=== PATIENT | female | born 1940 | race Caucasian/White ===

== ENCOUNTER → 2023-09-13 09:41 | Outpatient (REF) | payer OTHER, SELFPAY | LOC: RAD 09:41 | PROVIDERS: ATTENDING PHYSICIAN Physical Medicine & Rehabilitation; FAMILY PHYSICIAN Family Medicine | DX: R25.2 Cramp and spasm (principal) | CPT/HCPCS: 93971 ==

== ENCOUNTER → 2024-01-15 09:30 | Outpatient (REF) | payer OTHER, SELFPAY | LOC: RAD 09:30 | PROVIDERS: ATTENDING PHYSICIAN Nurse Practitioner Family | DX: M81.0 Age-related osteoporosis without current pathological fracture (principal); M85.80 Other specified disorders of bone density and structure, unspecified site | CPT/HCPCS: 77080 ==

== ENCOUNTER 2024-03-30 09:36 | Inpatient (IN) | payer OTHER, SELFPAY ==
[2024-03-06 12:46] VITALS: BMI 24.7
[2024-03-06 13:56] LABS: Hematocrit 43.6 % (37.0-47.0); Hemoglobin 14.7 g/dL (12.0-16.0); Mean Corp Hgb Conc. 33.7 g/dL (33.0-37.0); Mean Corpuscular Hgb 30.8 pg (27.0-31.0); Mean Corpuscular Volume 91.4 fL (81.0-99.0); Mean Platelet Volume 9.6 fL (7.4-10.4); Platelet Count 252 10^3/uL (130-400); Red Blood Cell Count 4.77 10^6/uL (4.20-5.40); Red Cell Dist. Width 12.6 % (11.5-14.5); White Blood Cell Count 7.7 10^3/uL (4.8-10.8)
[2024-03-06 14:04] LABS: ALT (SGPT) 25 U/L (0-35); AST (SGOT) 28 U/L (14-36); Albumin 4.5 g/dl (3.5-5.0); Alkaline Phosphatase 86 U/L (38-126); Blood Urea Nitrogen 21 mg/dl (7-17); Calcium 9.7 mg/dl (8.4-10.2); Carbon Dioxide 30 mmol/L (22-30); Chloride 97 mmol/L (98-107); Estimated Creatinine Clearance 51 ml/min; Glucose 136 mg/dl (70-99); Potassium 4.5 mmol/L (3.5-5.1); Sodium 137 mmol/L (135-145); Total Bilirubin 0.5 mg/dl (0.2-1.3); eGFR > 60.00
[2024-03-06 14:21] LABS: Glycohemoglobin (HgbA1c) 5.7 % (4.0-5.6)
[2024-03-30] VITALS (9 sets, daily range): BP systolic 114–168; BP diastolic 76–92; PULSE 84; O2SAT 95; BMI 24.7
[2024-03-30] MEDS: NORMOSOL-R/PLASMALYTE-A 1000 IV ×2 (09:50→17:11)
[2024-03-30] MEDS: TYLENOL 650 MG PO ×2 (10:20→17:06)
[2024-03-30] MEDS: CELEBREX 200 MG PO (10:20)
--- NOTE | 2024-03-30 15:02 | W.PN.ORTHO ---
Today's Communication / Plan
-
Will consult case management as pt has concerns re: d/c planning.
D/c when clinically stable.
Assessment
.
Distal Motor Intact: Yes
Dressing:
Clean, dry and intact.
Assessment:
R knee OA s/p R TKA w/ Dr Richard 03/30/24
DVT prophylaxis - ASA, b/l venous foot pumps
HTN - + parameters - monitor BP
GERD - continue PPI HS
Ambulatory dysfunction - on fall precautions
Hypercholesterolemia
Atherosclerosis of aorta
Mild-mod valvular disease
Multilevel DDD
OAB w/ urge incontinence
Macular degeneration
Osteoporosis
Prediabetes, A1c 5.7
Plan
.
Surgery / Date: R TKA w/ Dr Richard 03/30/24
DVT Prophylaxis: Aspirin
Activity:
Out of bed.
PT/OT
Subjective
.
.:
Patient resting comfortably in PACU.
R knee pain minimal and well tolerated.
Denies any new significant complaints.
Vital Signs and Labs
.
Vital Signs and Labs:
Lab Results
03/06/24 12:56
03/06/24 12:56
Physical Exam
-
HEENT: No pallor, cyanosis, or jaundice. Throat clear.
NECK: Supple. No JVD.
RESPIRATORY: Lungs clear to auscultation.
CVS: S1, S2 normal. RRR.�
ABDOMEN: Soft, non-tender. No distension.
EXTREMITIES: Strength equal, no calf pain with palpation/dorsiflexion. Calves soft.
WEB MARKETING ASSISTANT: AOx3. No focal deficits. bone char puller grossly intact
--- NOTE | 2024-03-30 15:21 | PTCARENOTE ---
Pt arrived to 2S in bed. Full assessment completed. R knee with trace edema. Decreased movement and sensation to B/L LEs, neurovascular assessment otherwise WDL. R knee DSG with scant pinpoint drainage noted. Bed locked and in the lowest position
safety maintained. Oriented to room and call sullivan.
[2024-03-30] MEDS: ASPIRIN 325 MG PO (17:06)
[2024-03-30] MEDS: ROXICODONE 5 MG PO (21:40)
[2024-03-30] MEDS: DETROL LA 2 MG PO (21:41)
[2024-03-30] MEDS: ANCEF 5 IV (21:42)
[2024-03-30] MEDS: BACTROBAN 2% OINTMENT 1 APPLIC NASAL (21:42)
[2024-03-30] MEDS: SENOKOT 17.2 MG PO (21:42)
[2024-03-30] MEDS: CRESTOR 10 MG PO (21:42)
[2024-03-30] MEDS: PROTONIX 40 MG PO (21:42)
[2024-03-30] MEDS: COLACE 100 MG PO (21:42)
[2024-03-30] MEDS: DECADRON 4 MG PO (21:43)
[2024-03-30] MEDS: TYLENOL PO (21:55)
[2024-03-31] MEDS: TYLENOL 650 MG PO ×5 (00:21→15:08)
[2024-03-31] MEDS: ANCEF 5 IV (03:08)
[2024-03-31 03:53] VITALS: BP 134/78
[2024-03-31 07:00] VITALS: BP 110/72
[2024-03-31] MEDS: CELEBREX 200 MG PO (08:13)
[2024-03-31] MEDS: DECADRON 4 MG PO (08:13)
[2024-03-31] MEDS: COLACE 100 MG PO (08:13)
[2024-03-31] MEDS: ASPIRIN 325 MG PO (08:14)
[2024-03-31] MEDS: BACTROBAN 2% OINTMENT 1 APPLIC NASAL (08:14)
[2024-03-31] MEDS: SENOKOT 17.2 MG PO (08:14)
[2024-03-31] MEDS: ZOFRAN 4 MG IV (09:16)
[2024-03-31 10:45] VITALS: BP 118/66; BP 135/73; PULSE 58; PULSE 69; O2SAT 95
--- NOTE | 2024-03-31 10:52 | W.PN.ORTHO ---
Today's Communication / Plan
-
D/c today if remaining clinically stable.
Assessment
.
Distal Motor Intact: Yes
Dressing:
Scant areas of old incisional bleeding.
Assessment:
R knee OA s/p R TKA w/ Dr Richard 03/30/24
DVT prophylaxis - ASA, b/l venous foot pumps
Mild nausea - medicated w/ IV Zofran - encouraged pain meds w/ food, PO Zofran prn upon d/c
HTN - + parameters - BPs overall stable
GERD - continue PPI HS
Ambulatory dysfunction - on fall precautions
Hypercholesterolemia
Atherosclerosis of aorta
Mild-mod valvular disease
Multilevel DDD
OAB w/ urge incontinence
Macular degeneration
Osteoporosis
Prediabetes, A1c 5.7
Plan
.
Surgery / Date: R TKA w/ Dr Richard 03/30/24
DVT Prophylaxis: Aspirin
Activity:
Out of bed.
PT/OT
Discharge Plan: Home w/ VN
Subjective
.
.:
Patient resting comfortably in bed this AM.
Mild nausea reported - medicated w/ IV Zofran recently.
Denies any new significant complaints.
Eager for potential d/c today.
Vital Signs and Labs
.
Vital Signs and Labs:
Lab Results
03/06/24 12:56
03/06/24 12:56
Temp Pulse Resp BP Pulse Ox
99.8 F 84 18 110/72 96
03/31/24 07:00 03/31/24 07:00 03/31/24 07:00 03/31/24 07:00 03/31/24 07:00
Physical Exam
-
HEENT: No pallor, cyanosis, or jaundice. Throat clear.
NECK: Supple. No JVD.
RESPIRATORY: Lungs clear to auscultation.
CVS: S1, S2 normal. RRR.
ABDOMEN: Soft, non-tender. No distension.
EXTREMITIES: Mild R knee post-surgical edema. Strength equal, no calf pain with palpation/dorsiflexion. Calves soft.
CHILD PSYCHOMETRIST: AOx3. No focal deficits. laborer sawmill grossly intact
[2024-03-31 11:00] VITALS: BP 140/80
--- NOTE | 2024-03-31 11:10 | CM ---
Addendum entered by Allyn George 03/31/24 11:34:
List of outpatient rehabs given to the patient.
Original Note:
Patient seen at bedside. Called and left message with her daughter Maru [phone]
IA completed
PT recommend home health.
Outpatient was not set up (per Ivonne OLIVARES prior note stated script was given) - patient states assumed SNF post-surgery.
Options given [facility] - liaison notified.
Referral in [facility].
IMM explained & signed.
PLAN: Discharge to home with VN
patient states daughter will transport her after work
--- NOTE | 2024-03-31 11:42 | VNURNOTE ---
Home Health Liaison met with patient at bedside to discuss [facility] nurse/therapy, visits, schedule and homebound status. Patient is agreeable and understands that visits at home will be 2-3 x per week to assess and teach medical management.
[facility] brochure provided with contact information. Patient is aware that [facility] will contact them for start of care in 1-2 days after discharge from .
[facility] referral completed in [facility].
[2024-03-31 12:33] VITALS: BP 132/74; BP 135/74; PULSE 66
[2024-03-31 15:00] VITALS: BP 142/80
--- NOTE | 2024-03-31 15:01 | W.DS.TRANS ---
DC Summary - Hand Assembler
-
Discharge Instructions:
Sleep Apnea Risk Low
Discharge Diagnosis/Procedures R knee OA s/p R TKA w/ Dr Richard 03/30/24
Diet Regular
Activity As tolerated,With Walker
Driving Restrictions Not until seen by your Dr
Bathing Restrictions OK to Shower
Other Services PT,VN
Wound Care Dressing to be removed 1 week post-surgery.
Instructions:
Stand-Alone Forms: Total Hip/Knee Replacement D/C
Changes to Home Medications: Yes
Discharge Medications:
DC Medications w/original date entered in swabr
Garden Veges 1 dose PO DAILY 03/24/24
Total [place] 1 dose PO DAILY 03/24/24
Womens Complete 1 dose PO DAILY 03/24/24
levocetirizine 2.5 mg/5 mL oral solution (Xyzal) 2.5 mg PO QPM Allergies 03/24/24
lutein 40 mg-zeaxanthin 1,600 mcg capsule 1 cap PO BID 03/24/24
mupirocin 2 % ointment topical kit 1 applic topical BID 03/24/24
omeprazole 20 mg tablet,delayed release 20 mg PO HS Gastrointestinal Issue 03/24/24
rosuvastatin 10 mg tablet 10 mg PO HS High Cholesterol 03/24/24
trospium 60 mg capsule,extended release 24 hr 60 mg PO HS Lung/Breathing Issues 03/24/24
vitamin B12 500 mcg-folic acid 400 mcg tablet 1 tab PO DAILY Supplement 03/24/24
acetaminophen 500 mg tablet (Tylenol Extra Strength) 1,000 mg (2 x 500 mg) PO Q6H #60 tabs 03/31/24
aspirin 325 mg tablet 325 mg PO DAILY #30 tabs 03/31/24
dexamethasone 4 mg tablet 4 mg PO Q12H Anti-inflammatory #7 tabs 03/31/24
docusate sodium 100 mg capsule 100 mg PO BID #30 caps 03/31/24
meloxicam 15 mg tablet 15 mg PO DAILY #14 tabs 03/31/24
ondansetron HCl 4 mg tablet 4 mg PO Q6H PRN nausea and vomiting #30 tabs 03/31/24
oxycodone 5 mg tablet 5 - 10 mg (1 - 2 x 5 mg) PO Q6H PRN moderate-severe pain #30 tabs 03/31/24
sennosides 8.6 mg tablet (Senna Laxative) 17.2 mg (2 x 8.6 mg) PO BID #30 tabs 03/31/24
Home Medication Changes
acetaminophen 500 mg tablet (Tylenol Extra Strength) 1,000 mg (2 x 500 mg) PO Q6H #60 tabs 03/31/24
aspirin 325 mg tablet 325 mg PO DAILY #30 tabs 03/31/24
dexamethasone 4 mg tablet 4 mg PO Q12H Anti-inflammatory #7 tabs 03/31/24
docusate sodium 100 mg capsule 100 mg PO BID #30 caps 03/31/24
meloxicam 15 mg tablet 15 mg PO DAILY #14 tabs 03/31/24
ondansetron HCl 4 mg tablet 4 mg PO Q6H PRN nausea and vomiting #30 tabs 03/31/24
oxycodone 5 mg tablet 5 - 10 mg (1 - 2 x 5 mg) PO Q6H PRN moderate-severe pain #30 tabs 03/31/24
sennosides 8.6 mg tablet (Senna Laxative) 17.2 mg (2 x 8.6 mg) PO BID #30 tabs 03/31/24
Pending Results: No
== END 2024-03-31 16:32 | disposition home health service (06) | DRG 470 ==
LOC: 2 SOUTH 09:36
PROVIDERS: ADMITTING PHYSICIAN Specialist; FAMILY PHYSICIAN Family Medicine
PROC: 0SRC0J9 Replacement of Right Knee Joint with Synthetic Substitute, Cemented, Open Approach (ICD-10-PCS; 2024-03-30)
DX: M17.11 Unilateral primary osteoarthritis, right knee (principal); I10 Essential (primary) hypertension; M81.0 Age-related osteoporosis without current pathological fracture; L71.9 Rosacea, unspecified; N32.81 Overactive bladder; H26.9 Unspecified cataract; E78.5 Hyperlipidemia, unspecified; B35.1 Tinea unguium; R32 Unspecified urinary incontinence; R11.0 Nausea; Z59.82 Transportation insecurity; Z79.899 Other long term (current) drug therapy; Z88.0 Allergy status to penicillin; Z88.8 Allergy status to other drugs, medicaments and biological substances; Z91.040 Latex allergy status; Z82.49 Family history of ischemic heart disease and other diseases of the circulatory system
CPT/HCPCS: 36415; 73560; 80053; 83036; 85027; 87070; 93005; 97110; 97116; 97162; 97166; 97530; 97535; C1713; C1776

== ENCOUNTER 2024-04-13 17:42 | Emergency (ER) | payer OTHER, SELFPAY ==
[2024-04-13 18:06] VITALS: BP 168/88
--- NOTE | 2024-04-13 18:10 | ED.GENMED ---
ED Provider Triage
<Frandy Bella PA-C - Last Filed: 04/13/24 18:11>
-
Patient seen by provider in Triage?: Seen in Triage
83-year-old female presents with onset of right thigh knee and right calf pain starting today. She had a right knee replacement surgery by Dr. Richard on March 30. She had her joesph removed today. Several hours after coming home from the
office she was sitting on the couch and developed pain in her leg that started in the medial thigh radiate through the knee and into the posterior calf. No associated chest pain or shortness of breath. She took oxycodone the full aspirin and some
Tylenol and the pain is somewhat improved. No prior history of DVT or PE.
Vital signs are stable through triage. Look at the knee demonstrates no obvious erythema or significant swelling. Start with labs and ultrasound of the leg
History of Present Illness
<Frandy Bella PA-C - Last Filed: 04/13/24 18:11>
General
Chief Complaint: Post Operative Problem(s)
Time Seen by Provider: 04/13/24 21:59
<Joselo Garcia MD - Last Filed: 04/14/24 01:05>
General
Source: patient
Exam Limitations: none
Nursing documentation reviewed up to this point in time: agreed with
History of Present Illness
History of Present Illness:
83-year-old female with history as documented presents to the emergency room for evaluation of right leg pain. Patient had recent right knee replacement with Dr. Richard on 03/30/2024. She had been doing well�was initially ambulating postop with
walker and recently transition to cane with assistance. She had joesph removed from her incision today and when she was coming home from the appointment she says she was ambulatory and feeling well however she started to have some pain in the
right medial thigh and increased bruising in the area and came to the ER for evaluation. She denies any chest pain shortness of breath. Denies any other complaints. She is on aspirin but no other blood thinners.
Past History
<Frandy Bella PA-C - Last Filed: 04/13/24 18:11>
Past History
ED Past Medical History: HTN and Hypercholesterolemia
ED Past Surgical History: Tonsilectomy
Social History
Tobacco: Former smoker
Review of Systems
<Joselo Garcia MD - Last Filed: 04/14/24 01:05>
Review of Systems
All Other Systems: ROS reviewed and negative except as documented in HPI and ROS
Constitutional: Denies fever or chills
Respiratory: Denies trouble breathing
Cardiac: Denies chest pain
Musculoskeletal: Reports muscle pain and edema; Denies neck pain or back pain
Phy Exam
<Joselo Garcia MD - Last Filed: 04/14/24 01:05>
Physical Exam
Physical Exam:
General: Well appearing and non-toxic
HEENT: protecting airway
Neck: appears supple
CV: No evidence of cyanosis
Resp: No accessory muscle use
Abd: Non-distended
Extremities: No deformities; on exam of her right leg: patient has well-healing incision anterior knee, no joint effusion noted; she has bruising medial thigh and swelling, tenderness particularly in the distal medial thigh just proximal to the
knee; she has some old appearing bruising in the calf and some slight edema, marginal tenderness in the calf; she has a good strong DP and PT pulse right lower extremity
Neuro: Alert
Psych: Normal affect
Skin: Intact, healing surgical incision
Scores
<Joselo Garcia MD - Last Filed: 04/14/24 01:05>
Heart Failure Risk
Heart Failure Risk Score: Not Applicable
Heart Score for Chest Pain Patients
STEMI patient?: Not applicable
Withdrawal Assessment of Alcohol
Withdrawal Assessment Completed?: Not applicable
Course
<Frandy Bella PA-C - Last Filed: 04/13/24 18:11>
Orders/Labs/Results
Orders:
Orders
04/13/24 18:09
Venous Doppler Lwr Ext Rt [US Periph Venous LOWER Ext RT] Urgent
Comment:
Reason For Exam: pain in leg
04/13/24 18:14
Complete Blood Count/With Diff Urgent
Comprehensive Metabolic Panel Urgent
04/13/24 22:25
Acetaminophen [Tylenol] 1,000 mg .ROUTE .STK-MED ONE
04/13/24 22:27
Acetaminophen [Tylenol] 1,000 mg PO NOW STA
Abnormal Lab Results
04/13/24
18:14
WBC 15.5 H 10^3/uL
(4.8-10.8)
RBC 3.34 L 10^6/uL
(4.20-5.40)
Hgb 10.6 L g/dL
(12.0-16.0)
Hct 31.0 L %
(37.0-47.0)
MCH 31.7 H pg
(27.0-31.0)
Plt Count 403 H 10^3/uL
(130-400)
Abs Immat Gran (auto) 0.1 H 10^3/uL
(0-0.05)
Absolute Neuts (auto) 13.8 H 10^3/uL
(1.4-6.5)
Absolute Lymphs (auto) 0.8 L 10^3/uL
(1.2-3.4)
Absolute Monos (auto) 0.7 H 10^3/uL
(0.1-0.6)
Immature Gran % 0.7 H %
(0-0.5)
Neutrophils % 89.0 H %
(42.2-75.2)
Lymphocytes % 4.8 L %
(20.5-51.1)
Sodium 134 L mmol/L
(135-145)
Chloride 97 L mmol/L
(98-107)
BUN 18 H mg/dl
(7-17)
Glucose 131 H mg/dl
(70-99)
AST 48 H U/L
(14-36)
ALT 45 H U/L
(0-35)
04/13/24 18:14
04/13/24 18:14
Vital Signs
Initial and Last Documented VS:
Initial Vital Signs
Temp Pulse Resp BP Pulse Ox
36.6 C 79 16 168/88 98
04/13/24 18:06 04/13/24 18:06 04/13/24 18:06 04/13/24 18:06 04/13/24 18:06
Last Documented Vital Signs
Temp Pulse Resp BP Pulse Ox
36.6 C 79 16 168/88 98
04/13/24 18:06 04/13/24 18:06 04/13/24 18:06 04/13/24 18:06 04/13/24 18:06
<Joselo Garcia MD - Last Filed: 04/14/24 01:05>
Orders/Labs/Results
Orders:
Orders
04/13/24 18:09
Venous Doppler Lwr Ext Rt [US Periph Venous LOWER Ext RT] Urgent
Comment:
Reason For Exam: pain in leg
04/13/24 18:14
Complete Blood Count/With Diff Urgent
Comprehensive Metabolic Panel Urgent
04/13/24 22:25
Acetaminophen [Tylenol] 1,000 mg .ROUTE .STK-MED ONE
04/13/24 22:27
Acetaminophen [Tylenol] 1,000 mg PO NOW STA
Abnormal Lab Results
04/13/24
18:14
WBC 15.5 H 10^3/uL
(4.8-10.8)
RBC 3.34 L 10^6/uL
(4.20-5.40)
Hgb 10.6 L g/dL
(12.0-16.0)
Hct 31.0 L %
(37.0-47.0)
MCH 31.7 H pg
(27.0-31.0)
Plt Count 403 H 10^3/uL
(130-400)
Abs Immat Gran (auto) 0.1 H 10^3/uL
(0-0.05)
Absolute Neuts (auto) 13.8 H 10^3/uL
(1.4-6.5)
Absolute Lymphs (auto) 0.8 L 10^3/uL
(1.2-3.4)
Absolute Monos (auto) 0.7 H 10^3/uL
(0.1-0.6)
Immature Gran % 0.7 H %
(0-0.5)
Neutrophils % 89.0 H %
(42.2-75.2)
Lymphocytes % 4.8 L %
(20.5-51.1)
Sodium 134 L mmol/L
(135-145)
Chloride 97 L mmol/L
(98-107)
BUN 18 H mg/dl
(7-17)
Glucose 131 H mg/dl
(70-99)
AST 48 H U/L
(14-36)
ALT 45 H U/L
(0-35)
04/13/24 18:14
04/13/24 18:14
Vital Signs
Initial and Last Documented VS:
Initial Vital Signs
Temp Pulse Resp BP Pulse Ox
36.6 C 79 16 168/88 98
04/13/24 18:06 04/13/24 18:06 04/13/24 18:06 04/13/24 18:06 04/13/24 18:06
Last Documented Vital Signs
Temp Pulse Resp BP Pulse Ox
36.6 C 79 16 168/88 98
04/13/24 18:06 04/13/24 18:06 04/13/24 18:06 04/13/24 18:06 04/13/24 18:06
<Joselo Garcia MD - Last Filed: 04/14/24 01:05>
MDM/Problems Addressed
Differential Diagnosis Includes:
DVT, hematoma, dependent edema, muscular strain
MDM/Problems Addressed:
83-year-old female presents for evaluation of increased pain and swelling in her right leg�had recent knee replacement, joesph were removed today and then she had rather abrupt worsening of pain particularly in the right medial thigh. She has
increased bruising in the area of the pain. Vitals normal. Exam as above. Suspect likely hematoma. She had labs sent in triage which showed slight leukocytosis and marginal anemia likely related to recent procedure. CMP no clinically
significant abnormalities. She was sent for a DVT study which was negative for DVT but positive for hematoma in the area of concern. Burke wrap applied, patient instructed to ice area, stable for discharge. Discussed return precautions in details
including for worsening swelling, pain, or any other concerning symptoms such as shortness of breath or dizziness. She feels very comfortable with this plan. All questions answered.
<Joselo Garcia MD - Last Filed: 04/14/24 01:05>
*Radiology
Radiology exam reviewed: radiology read reviewed
*Pulse Oximetry
Patient hypoxic: no
*Critical Care Note
Total Time (30-74mins, 75-104mins- exclusive of procedures): Not Applicable
Data Reviewed
Source: patient, records and family
ED Attending Note
<Frandy Bella PA-C - Last Filed: 04/13/24 18:11>
-
Portions of this chart may have been created with voice recognition software.� Occasional wrong word or��sound alike� substitutions may have occurred due to the inherent limitations of voice recognition software.
Discharge Plan
Departure
Patient Disposition: Home (Routine Discharge)
Date of Disposition: 04/13/24
Time of Disposition: 22:12
Patient with high blood pressure during this ER visit?: Yes
Discharge Problem:
Postoperative hematoma
Instructions: Postoperative Pain (DC)
Prescriptions:
No Action
rosuvastatin 10 mg Tablet
10 mg PO HS
trospium 60 mg Capsule,Extended Release 24hr
60 mg PO HS
omeprazole 20 mg Tablet,Delayed Release (Dr/Ec)
20 mg PO HS
vitamin I12-zcjay acid 500-400 mcg Tablet
1 tab PO DAILY
lutein-zeaxanthin 40-1,600 mg-mcg Capsule
1 cap PO BID
Garden Veges
1 dose PO DAILY
Total [place]
1 dose PO DAILY
Womens Complete
1 dose PO DAILY
mupirocin 2 % Ointment Kit
1 applic TOPICAL BID
Patient Comments:
Patient started this medication on 03/28/24 in the morning.
levocetirizine [Xyzal] 2.5 mg/5 mL Solution
2.5 mg PO QPM
aspirin 325 mg Tablet
325 mg PO DAILY Qty: 30 0RF
Rx Instructions:
Take daily x4 weeks for blood clot prevention; then resume Aspirin 81 mg daily.
dexamethasone 4 mg Tablet
4 mg PO Q12H Qty: 7 0RF
Rx Instructions:
Restart night of discharge and continue every 12 hours until finished.
Take with food.
docusate sodium 100 mg Capsule
100 mg PO BID Qty: 30 0RF
oxycodone 5 mg Tablet
5 - 10 mg PO Q6H PRN (Reason: moderate-severe pain) Qty: 30 0RF
Rx Instructions:
1 tab for moderate pain, 2 if severe.
Dx total joint.
sennosides [Senna Laxative] 8.6 mg Tablet
17.2 mg PO BID Qty: 30 0RF
ondansetron HCl 4 mg tablet
4 mg PO Q6H PRN (Reason: nausea and vomiting) Qty: 30 0RF
Rx Instructions:
Prescribed pre-op by surgeon's office.
meloxicam 15 mg tablet
15 mg PO DAILY Qty: 14 0RF
Rx Instructions:
Take with food.
DO NOT take within 2 hours of Aspirin.
acetaminophen [Tylenol Extra Strength] 500 mg tablet
1,000 mg PO Q6H Qty: 60 0RF
Rx Instructions:
DO NOT exceed >4000 mg daily.
Referrals:
Júnior Richard MD [Active] - Follow up in 5-7 days
Activity Restrictions/Additional Instructions:
Thank you for visiting the Emergency Department at [facility].
1. Please schedule a follow up appointment as directed. Call first thing tomorrow morning to make an appointment.
2. If indicated, please take your medications as instructed and indicated on discharge paperwork.
3. If any of your symptoms do not improve, or persist, or become more severe within 6-12 hours, please return to the emergency department for further care.
4. Please return to the emergency department if you develop a headache, neck pain/stiffness, fever greater than 100.4F, chest pain, shortness of breath, persistent nausea, vomiting, slurred speech, difficulty walking, numbness/tingling, weakness,
signs of infection or any other symptoms that are worrisome to you.
Please call [phone] if you have any questions.
Interventions
Interventions:
*Risk Screen - Suicide Last Done: 04/13/24 18:07
*General Assessment Last Done: 04/13/24 18:07
*Neglect/Abuse Screening Last Done: 04/13/24 18:07
ED- Fall Risk Assessment Last Done: 04/13/24 22:47
*ED COVID-19 Vaccine History Last Done: 04/13/24 18:07
*Nursing Disposition Last Done: 04/13/24 22:47
ED-Skin Assessment Last Done: 04/13/24 22:46
Discharge Date and Time
Discharge Date/Time: 04/13/24 22:47
Print Language: NEPALI
[2024-04-13 18:21] LABS: % Basophils 0.5 % (0-2); % Eosinophils 0.5 % (0-6); % Immature Granulocytes 0.7 % (0-0.5); % Lymphocytes 4.8 % (20.5-51.1); % Monocytes 4.5 % (1.7-9.3); Absolute Basophils 0.1 10^3/uL (0-0.2); Absolute Eosinophils 0.1 10^3/uL (0-0.7); Absolute Immature Granulocytes 0.1 10^3/uL (0-0.05); Absolute Lymphocytes 0.8 10^3/uL (1.2-3.4); Absolute Monocytes 0.7 10^3/uL (0.1-0.6); Absolute Neutrophils 13.8 10^3/uL (1.4-6.5); Hemoglobin 10.6 g/dL (12.0-16.0); Mean Corp Hgb Conc. 34.2 g/dL (33.0-37.0); Mean Corpuscular Hgb 31.7 pg (27.0-31.0); Mean Corpuscular Volume 92.8 fL (81.0-99.0); Mean Platelet Volume 8.6 fL (7.4-10.4); Nucleated Red Blood Cells % 0 %; Platelet Count 403 10^3/uL (130-400); Red Blood Cell Count 3.34 10^6/uL (4.20-5.40); Red Cell Dist. Width 13.4 % (11.5-14.5); White Blood Cell Count 15.5 10^3/uL (4.8-10.8)
[2024-04-13 18:37] LABS: ALT (SGPT) 45 U/L (0-35); AST (SGOT) 48 U/L (14-36); Albumin 4.1 g/dl (3.5-5.0); Alkaline Phosphatase 63 U/L (38-126); Blood Urea Nitrogen 18 mg/dl (7-17); Carbon Dioxide 26 mmol/L (22-30); Chloride 97 mmol/L (98-107); Glucose 131 mg/dl (70-99); Potassium 4.4 mmol/L (3.5-5.1); Sodium 134 mmol/L (135-145); Total Bilirubin 1.1 mg/dl (0.2-1.3); Total Protein 6.7 g/dl (6.3-8.2); eGFR > 60.00
[2024-04-13] MEDS: TYLENOL 1000 MG PO (22:27)
== END 2024-04-13 22:47 | disposition home or self-care (01) ==
LOC: EMR 17:42
PROVIDERS: Physician Assistant; EMERGENCY PHYSICIAN Emergency Medicine; FAMILY PHYSICIAN Family Medicine
DX: L76.32 Postprocedural hematoma of skin and subcutaneous tissue following other procedure (principal); R22.41 Localized swelling, mass and lump, right lower limb; I10 Essential (primary) hypertension; E78.00 Pure hypercholesterolemia, unspecified; Z87.891 Personal history of nicotine dependence; Z96.651 Presence of right artificial knee joint; Z79.82 Long term (current) use of aspirin
CPT/HCPCS: 99284; 80053; 85025; 93971

== ENCOUNTER → 2025-03-09 11:39 | Outpatient (REF) | payer MEDICARE, SELFPAY | LOC: PAVMRI 11:39 | PROVIDERS: ATTENDING PHYSICIAN Specialist; FAMILY PHYSICIAN Family Medicine | DX: M54.16 Radiculopathy, lumbar region (principal); M25.552 Pain in left hip | CPT/HCPCS: 72148; 73721 ==